=== PATIENT | female | born 1955 | race Caucasian/White ===

== ENCOUNTER → 2017-02-21 | Day surgery (SDC) | payer OTHER ==
[~2017-02-21] VITALS: Ht 165.1 cm; Wt 61.8 kg
[~2017-02-21] MED LIST: BUPIVACAINE HCL PF 0.5% 30 ML VIAL ONE; CYCL1PAK; DEXT 5%-NACL 0.45% 1000 ML INJ 1,000 ML IV SCH; FAMOTIDINE 20 MG/2 ML VIAL ONE; FIORINAL2 PO; LACTATED RINGER'S 1000 ML INJ 1,000 ML ONE; MIDAZOLAM HCL 2 MG/2 ML VIAL ONE; POVIDONE IODINE 10% OINT 1 PACKET TOPICAL ONE; PROM25TA10 PO; PROM25TA5 PO; PROPOFOL 200 MG/20 ML AMP IV ONE; SODIUM CHLORIDE 0.9% FLUSH 5 ML FLUSH IVF PRN; SODIUM CHLORIDE 0.9% FLUSH 5 ML FLUSH IVF SCH; ZOMI5SPR; ZOSTINJ SQ; ceFAZolin 2 GM PREMIX 50 ML ONE
[2017-02-21 07:00] VITALS: BP 160/104; PULSE 91; RESP 20; TEMP 97.8; O2SAT 100
[2017-02-21 07:25] LABS: HEMATOCRIT 42.3 % (35.0-46.0); MEAN CELL VOLUME 91.1 FL (80.0-100.0); MEAN CORPUSCULAR HEMOGLOBIN 29.8 PG (27.0-34.0); MEAN CORPUSCULAR HGB CONC 32.7 % (32.0-36.0); PLATELET COUNT 275 TH/MM3 (150-450); RED BLOOD COUNT 4.64 MIL/MM3 (4.00-5.30); RED CELL DISTRIBUTION WIDTH 12.8 % (11.6-17.2); REVIEW FLAG FINAL; WHITE BLOOD COUNT 7.3 TH/MM3 (4.0-11.0)
--- NOTE | 2017-02-21 08:33 | HP.UPD ---
H&P Update Date: Feb 21, 2017 Note The Pre-Admit History and Physical Examination regarding the above named patient was reviewed (including, but not limited to, vital signs, medications, allergies, co-morbid conditions), and upon re-examination it is noted that: Indicated with "X" x - the patient's condition has not significantly changed since the last examination. [] - the patient's condition has changed since the last examination. Changes: Melanie Mcrae MD Feb 21, 2017 08:32
--- NOTE | 2017-02-21 10:16 | HHI.PR ---
Immediate Post Op Note Procedure Date: Feb 21, 2017 Pre Op Diagnosis: (1) Scar adherent (2) Retained orthopedic hardware Post Op Diagnosis: (1) Retained orthopedic hardware (2) Scar adherent Surgeon: Melanie Mcrae Senior [employer] Engineer(s): None Procedure: 1. Removal of hardware left hand. 2. Tenotomy flexor digitorum profundus and flexor digitorum superficialis left fifth finger. 3. Closure of wound with Z- plasty. Specimen(s) removed: A portion of the screw was removed. Anesthesia: General Drains: None Tourniquet time (min at mmHg) 48 minutes at 250 mmHg Patient to: PACU Patient Condition: Good Date/Time of Procedure: SEE SURGICAL CARE RECORD Melanie Mcrae MD Feb 21, 2017 10:16
[2017-02-21 11:35] VITALS: BP 149/89; PULSE 74; RESP 16; TEMP 98; O2SAT 100
--- NOTE | 2017-02-21 21:18 | MP ---
cc: JESSICA MATHIS MD DATE OF SURGERY 02/21/17 PREOPERATIVE DIAGNOSIS 1. Retained hardware dorsal aspect of left hand. 2. 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 POSTOPERATIVE DIAGNOSIS 1. Retained hardware dorsal aspect of left hand. 2. 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 PROCEDURE 1. Removal of hardware of the left hand. 2. Tenotomy of the flexor digitorum profundus in the left fifth finger. 3. Tenotomy of the flexor digitorum superficialis left fifth finger. 4. Closure of wound with Z-plasty ANESTHESIA General SURGEON Dr. Regulo Mathis INDICATION A 61-year-old female with a previous severe injury to the left hand with multiple reconstructions. A plate in the back of the hand did break and a screw was pushing up beneath the skin. 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 As per our discussion, it was decided that I would remove the hardware which was irrigating the back of her hand and do a tenotomy in order to release the fifth finger. Both of these were accomplished. There was some skin contracture which required a Z-plasty. Tourniquet time was 48 minutes. PROCEDURE IN DETAIL The patient was seen preoperatively where the sites and side were identified and marked. The patient was then taken to the operating room, placed in A supine position. Her identity was checked against the arm band and the consent form, site and side confirmed, time-out called. Prior to beginning the procedure, the left upper extremity was prepped with Hibiclens and draped in usual sterile fashion. The area to be incised was outlined with a marking pen as an oblique incision over the hardware on the back of the hand as well as a Shilpa type zigzag incision over the palmar aspect of the left fifth finger. The arm was exsanguinated and the tourniquet inflated to 250 mmHg. A #15 blade was used to make an incision over the back of the hand down through the skin down to the subcutaneous tissue using sharp blunt dissection. The foreign body granuloma was removed and discarded and the screw was removed. The debris was also cleansed out of there. A portion of the screw which was removed which was basically the head and several threads was cleansed as the patient did want it. This area was then copiously irrigated with saline, injected with bupivacaine 0.5% plain and closed with a running 5-0 nylon suture. Attention was then turned to the palmar aspect of the hand where the fifth finger was anesthetized with bupivacaine 0.5% plain. A 15 blade was used to make the incision as outlined above over the proximal phalanx all the way to the DIP crease. Under loupe magnification, using sharp and blunt dissection the flaps are elevated, raised exposing the tendons. Tenotomy was performed over the proximal phalanx and this did release the PIP joint. Dissection was continued distally where the tendons inserted into the volar base of the distal phalanx. The tendon was removed as were the stitches which had been present. The collateral ligaments were released as were some fascial attachments. This gave almost complete and full extension. The wound was then copiously irrigated with saline. The Z-plasty was performed over the middle phalanx due to tightness of the scar and this gave excellent closure without tension. The wounds were closed with interrupted and running 5-0 nylon suture. Tourniquet was released after 48 minutes of tourniquet time. Pressure was applied. Adequate circulation to the fifth finger and the rest of the fingers was noted. Dressing was applied using povidone-iodine ointment, Adaptic, Telfa, 4x4s and hand wrap. The patient was then taken from the operating room to recovery room in satisfactory condition having tolerated the procedure well. Postoperative instructions include keeping the arm elevated, keeping it clean and dry and returning in several days for follow up. The patient is advised to take anti-inflammatories for pain. MD RATUR Segovia/ /10:20 AM /8:56 PM
--- NOTE | 2017-02-23 10:15 | EKG ---
Date Performed: 02/21/2017 Time Performed: 07:17:22 PTAGE: 61 years EKG: Sinus rhythm . Inferior T wave changes are nonspecific Borderline ECG NO PREVIOUS TRACING DOCTOR: Guy Phelps Interpretating Date/Time 02/23/2017 09:56:04
== END | disposition home or self-care (01) ==
LOC: PHSDC 06:16
PROVIDERS: ATTEND Specialist
DX: T84.21 Breakdown (mechanical) of internal fixation device of other bones (principal); M24.542 Contracture, left hand; Z01.810 Encounter for preprocedural cardiovascular examination; Z01.818 Encounter for other preprocedural examination
CPT/HCPCS: 01810; 14040; 20680; 26455; 36415; 85027; 93005; J0690; J2250; J7120